=== PATIENT | female | born 1990 | race African-American/Black ===

== ENCOUNTER 2023-03-20 11:58 | Outpatient (CLI) | payer OTHER ==
--- NOTE | 2023-03-20 22:48 | CT Report ---
PROCEDURE: ABDOMEN/PELVIS WO INDICATIONS: VENTRAL HERNIA TECHNIQUE: Noncontrast 5 mm thick sections acquired from the diaphragms to the symphysis. 5 mm coronal and sagi ttal reformats were then performed. For radiation dose reduction, the following was used: automated exposure control, adjustment of mA and/or kV according to patient size. COMPARISON: None. FINDINGS: Image quality: Excellent. Lung bases and heart: Unremarkable. Liver: No solid mass. Gallbladder and biliary tree: No radiopaque stones or wall thickening. No biliary dilation. Spleen: No splenomegaly. Pancreas: No pancreatic ductal dilation. Adrenals: No adrenal nodule. Kidneys and ureters: No hydronephrosis. No renal cystic lesion which requires follow up. No solid mas s. Bowel and peritoneum: No bowel distension. No pathologic free fluid. Lymph nodes: No central or retroperitoneal adenopathy. Vessels: No infrarenal aortic aneurysm. PELVIS Reproductive organs: Unremarkable. Bladder: No abnormal wall thickening, accounting for underdistension. Pelvic lymph nodes: No pelvic adenopathy by size criteria. Bones: No aggressive osseous abnormality. Mild multilevel spondylosis. No acute compression fractures . Other: There is diastases recti. Very small fat-containing umbilical hernia without acute inflammatio n. Very small fluid collection within the hernia sac. Small fat-containing ventral abdominal hernia i dentified superior to the level of the umbilicus by approximately 3.5 cm. Wall of the ventral hernia measures approximately 1.5 cm in diameter. No associated inflammatory changes. IMPRESSION: CT abdomen and pelvis without acute abnormalities. Small fat-containing supraumbilical ventral hernia without acute inflammatory changes. Very small fat-containing umbilical hernia with small adjacent fluid collection in the hernia sac. No significant inflammatory changes.. Diastases recti at the level of the umbilicus. Reviewed by: Chito Vasquez MD on 03/20/2023 10:47 PM PDT Approved by: Chito Vasquez MD on 03/20/2023 10:47 PM PDT Station ID: [id number]
== END 2023-03-20 11:59 | disposition home or self-care (01) ==
LOC: EDBD → DI 11:58
PROVIDERS: ATTEND Surgery
DX: K43.9 Ventral hernia without obstruction or gangrene (principal); K42.9 Umbilical hernia without obstruction or gangrene

== ENCOUNTER 2023-04-28 06:20 | Day surgery (SDC) | payer OTHER ==
[~2023-04-28 06:20] MED LIST: ACETAMINOPHEN 500 MG TABLET PO ONE; CELECOXIB 100 MG CAPSULE PO ONE; GABAPENTIN 400 MG CAPSULE ONE; ceFAZolin 2 GM VIAL ONE
[2023-04-28 06:40] LABS: HCG UR QUAL NEGATIVE
[2023-04-28] MEDS ORDERED: LACTATED RINGERS 1,000 ML IV ONE ×3 (06:52→09:02)
--- NOTE | 2023-04-28 07:04 | ANESTHESIA ---
Pre-Anesthesia VS, & Labs - Diagnosis epigastric hernia, umbilical hernia - Procedure umbilical and ventral hernia repairs with mesh Vital Signs: Temp Pulse Resp BP Pulse Ox O2 Flow Rate 36.1 C L 93 18 133/92 H 98 04/28/23 06:41 04/28/23 06:41 04/28/23 06:41 04/28/23 06:41 04/28/23 06:41 Height: 5 ft Weight (kg): 97.4 kg Body Mass Index: 41.9 BMI Classification: Morbidly Obese - NPO >8 hours - Is Patient ?: No Home Medications and Allergies None Allergies/Adverse Reactions: Allergies Allergy/AdvReac Type Severity Reaction Status Date / Time No Known Drug Allergies Allergy Verified 04/17/23 10:37 Anes History & Medical History - Anesthetic History Family history of Anesthesia Complications: Denies Family history of Malignant Hyperthermia: Denies - Medical History Cardiovascular: reports: None Pulmonary: reports: None Gastrointestinal: reports: None Urinary: reports: None Neuro: reports: None Musculoskeletal: reports: None Endocrine/Autoimmune: reports: None Blood Disorders: reports: None Skin: reports: Eczema Smoking Status: Never smoker Psychosocial: reports: No issues indicated History of Cancer?: No - Surgical History Gynecologic: reports: section Exam General: Alert, Oriented x3, Cooperative, No acute distress Dental: WNL Mouth Openin Fingerbreadth Neck Mobility: Normal Mallampati classification: II Thyromental Distance: 4-6 cm Mental/Cognitive Status: Alert/Oriented X3, Normal for patient Plan Anesthesia Type: General Consent for Procedure(s) Verified and Reviewed: Yes Code Status: Attempt Resuscitation ASA classification: 1-Healthy patient Is this case an emergency?: No
[2023-04-28] MEDS ORDERED: PROPOFOL 200 MG/20 ML VIAL IVP ONE (07:15)
[2023-04-28] MEDS ORDERED: fentaNYL 100 MCG/2 ML VIAL ONE (07:16)
[2023-04-28] MEDS ORDERED: ROCURONIUM 50 MG/5 ML VIAL ONE (07:16)
[2023-04-28] MEDS ORDERED: MIDAZOLAM 2 MG/2 ML VIAL ONE (07:16)
[2023-04-28] MEDS ORDERED: LIDOCAINE 1%-EPI 1:100000 20 ML MDV ONE (07:17)
[2023-04-28] MEDS ORDERED: BUPIVACAINE 0.25% PF 30 ML VIAL ONE (07:17)
[2023-04-28] MEDS ORDERED: DEXAMETHASONE 4 MG/ML VIAL ONE (07:59)
[2023-04-28] MEDS ORDERED: ONDANSETRON 4 MG/2 ML VIAL ONE (07:59)
[2023-04-28] MEDS ORDERED: LIDOCAINE 1%-EPI 1:100000 20 ML MDV SUBQ ONE ×2 (08:00)
[2023-04-28] MEDS ORDERED: BUPIVACAINE 0.25% PF 30 ML VIAL SUBQ ONE ×2 (08:01)
[2023-04-28] MEDS ORDERED: HYDROmorphone 1 MG/ML CARPUJECT ONE (08:02)
[2023-04-28] MEDS ORDERED: SUGAMMADEX 200 MG/2 ML VIAL IVP ONE (08:20)
[2023-04-28] MEDS ORDERED: ONDANSETRON 4 MG/2 ML VIAL IVP PRN ×2 (08:26→08:45)
[2023-04-28] MEDS ORDERED: MORPHINE 2 MG/ML CARPUJECT IVP PRN (08:26)
[2023-04-28] MEDS ORDERED: fentaNYL 100 MCG/2 ML VIAL IVP PRN (08:26)
[2023-04-28] MEDS ORDERED: HYDROmorphone 0.5 MG/0.5 ML SYRINGE IVP PRN (08:26)
[2023-04-28] MEDS ORDERED: ATROPINE ABBOJECT 1 MG/10 ML SYRINGE IVP PRN (08:26)
[2023-04-28] MEDS ORDERED: NALOXONE 0.4 MG/ML VIAL IVP PRN (08:26)
[2023-04-28] MEDS ORDERED: oxyCODONE 5 MG TABLET PO PRN (08:45)
--- NOTE | 2023-04-28 08:48 | OPERATIVE REPORT ---
Operative Report - General Procedure Date: 04/28/23 Planned Procedure: open ventral hernia repair, x2 Pre-Op Diagnosis: ventral hernia x2 Procedure Performed: open primary ventral hernia repair x2 Post Op Diagnosis: ventral hernia x2 - Procedure Note Primary Surgeon: Dr. Molly Robles Anesthesia Provider: Desi Hoffman CRNA Anesthesia Technique: General ET tube, Local Pathology: none Estimated Blood Loss (mL): 5 Indications: The patient has pain in her abdomen superior to her umbilicus and at her umbilicus. Her pain is made worse with activity. It is also made worse when it is bumped by herself or her children. The patient was seen and evaluated in the clinic. Imaging confirmed that the patient has 2 small ventral hernias. We discussed the risks, benefits, and alternatives of open ventral hernia repair with possible mesh placement. Risks include but are not limited to bleeding, infection, damage to surrounding structures, recurrence of the hernia, and infection of the mesh is placed. The patient voiced understanding, her que stions were answered, and she wished to proceed. A consent was signed by the patient prior to surgery. Findings: 1. 1.2 cm epigastric ventral hernia superior to the umbilicus, and to the right of midline 2. 1 cm umbilical hernia Complications: None - Other Other Information/Narrative: The patient was brought to the operative suite and placed in the supine position. General endotracheal anesthesia was induced. Preoperative antibiotics were given. ERAS protocol was followed. A preop surgical timeout was performed. Local anesthetic was injected into the skin and subcutaneous tissues along the midline from the umbilicus superior. Next, a midline incision was planned superior to the umbilicus. The incision was made with a 15 blade scalpel. The incision was carried down through the skin and subcutaneous tissues to the level of the fascia using blunt and sharp dissection with electrocautery. The umbilical stalk was freed and the hernia was identified. A second hernia was identified approximately 4 cm superior to the umbilicus, and to the right of midline. Both hernia contained preperitoneal fat which were easily reduced. The preperitoneal space was developed circumferentially. The area was inspected for hemostasis. Because the hernias were so small, mesh was not used to repair them. The hernia has were primarily repaired in a running fashion using 2-0 PDS. Additional local was injected into the tissues surrounding the hernia repair. Next, the umbilical stalk was tacked to the fascia using 2-0 Vicryl in an interrupted fashion the wound was irrigated with warm normal saline. Next, 3-0 Vicryl was used to reapproximate the deep dermal tissues. Finally, 4-0 Monocryl was used in a running subcuticular fashion to reapproximate the skin edges. A sterile dressing of skin glue was placed. The patient was extubated in the operating room and transferred to the recovery room in stable condition. There were no complications.
[2023-04-28] MEDS ORDERED: LACTATED RINGERS 1,000 ML IV SCH (09:00)
--- NOTE | 2023-04-28 10:19 | ANESTHESIA POST OP EVALUATION ---
Anesthesia Post Eval - Post Anesthesia Eval Vitals: Last Vital Signs Temp 36.2 C L 04/28/23 09:26 Pulse 81 04/28/23 09:54 Resp 12 04/28/23 09:54 BP 124/85 H 04/28/23 09:54 Pulse Ox 97 04/28/23 09:54 O2 Flow Rate CV Function Including HR & BP: Stable Pain Control: Satisfactory Nausea & Vomiting: Negative Mental Status: Baseline Respiratory Status: Airway Patent Hydration Status: Satisfactory Anesthesia Complications: None
[2023-04-28] MEDS ORDERED: oxyCODONE 5 MG TABLET ONE (10:55)
[2023-04-28 10:59] VITALS: BP 130/86
[2023-04-28] MEDS ORDERED: IBUPROFEN 600 MG TABLET PO PRN (12:45)
[2023-04-28] MEDS ORDERED: ACETAMINOPHEN 325 MG TABLET PO PRN (14:45)
== END 2023-04-28 06:21 | disposition home or self-care (01) ==
LOC: SDS 06:20
PROVIDERS: ATTEND Surgery
DX: K43.9 Ventral hernia without obstruction or gangrene (principal); K42.9 Umbilical hernia without obstruction or gangrene; E66.01 Morbid (severe) obesity due to excess calories; Z32.02 Encounter for pregnancy test, result negative; Z68.41 Body mass index [BMI] 40.0-44.9, adult
CPT/HCPCS: 49591; 81025; A9270; J1170; J7120